=== PATIENT | female | born 1935 | race Caucasian/White ===

== ENCOUNTER 2019-02-25 08:54 | Emergency (ER) | payer MEDICARE, BC ==
[~2019-02-25] VITALS: Ht 162.6 cm; Wt 66.4 kg
[~2019-02-25 08:54] MED LIST: METO25TA6 PO; PANT-47 PO; SIMV20TA5 PO; SYN0.1T PO
[2019-02-25 09:15] VITALS: BP 142/57
[2019-02-25 10:00] LABS: BASOPHILS % (AUTO) 0.6 % (0-1); EOSINOPHILS # (AUTO) 0.1 X10'3 (0-0.9); EOSINOPHILS % (AUTO) 3.5 % (0-6); HEMATOCRIT 31.9 % (35.0-45.0); HEMOGLOBIN 10.4 g/dl (12.0-16.0); LYMPHOCYTES # (AUTO) 0.8 X10'3 (1.1-4.8); LYMPHOCYTES % (AUTO) 22.7 % (21-51); MEAN CORPUSCULAR HEMOGLOBIN 29.9 PG (27.0-31.0); MEAN CORPUSCULAR HGB CONC 32.7 g/dL (33.0-36.5); MEAN CORPUSCULAR VOLUME 91.7 FL (78-98); MEAN PLATELET VOLUME 7.7 FL (7.4-10.4); MONOCYTES # (AUTO) 0.4 X10'3 (0-0.9); MONOCYTES % (AUTO) 9.8 % (2-12); NEUTROPHILS # (AUTO) 2.3 X10'3 (1.8-7.7); NEUTROPHILS % (AUTO) 63.4 % (42-75); PLATELET COUNT 137 X10'3 (140-440); RED BLOOD COUNT 3.48 X10'6 (4.20-5.60); RED CELL DISTRIBUTION WIDTH 15.7 % (11.5-14.5); WHITE BLOOD COUNT 3.7 X10'3 (4.5-11.0)
[2019-02-25 10:18] LABS: ALANINE AMINOTRANSFERASE 37 U/L (12-78); ALBUMIN 3.6 G/DL (3.4-5.0); ALBUMIN/GLOBULIN RATIO 0.9 (1.1-1.5); ALKALINE PHOSPHATASE 49 IU/L (46-116); ANION GAP 9 (8-16); ASPARTATE AMINO TRANSFERASE 28 U/L (10-37); BILIRUBIN,TOTAL 0.7 MG/DL (0.1-1.0); BLOOD UREA NITROGEN 21 MG/DL (7-18); BUN/CREATININE RATIO 17.9 (6.6-38.0); CALCIUM 9.3 MG/DL (8.5-10.1); CHLORIDE 108 MMOL/L (99-107); CREATININE 1.17 MG/DL (0.40-0.90); GLUCOSE 89 MG/DL (70-104); SODIUM 142 MMOL/L (135-145); TOTAL CARBON DIOXIDE 24.9 MMOL/L (24-32); TOTAL PROTEIN 7.5 G/DL (6.4-8.2); eGFR 44 ML/MIN
[2019-02-25 10:25] LABS: MAGNESIUM 1.7 MG/DL (1.5-2.4)
== END 2019-02-25 10:53 | disposition home or self-care (01) ==
LOC: ER 08:54
DX: R55 Syncope and collapse (principal); I48.91 Unspecified atrial fibrillation; I10 Essential (primary) hypertension; E03.9 Hypothyroidism, unspecified; Z86.73 Personal history of transient ischemic attack (TIA), and cerebral infarction without residual deficits; Z98.890 Other specified postprocedural states; Z79.899 Other long term (current) drug therapy
CPT/HCPCS: 36415; 71045; 80053; 83735; 83880; 84484; 85025; 93005; 99284

== ENCOUNTER 2020-06-01 14:13 | Emergency (ER) | payer MEDICARE, BC ==
[~2020-06-01] VITALS: Ht 162.6 cm; Wt 66.4 kg
[~2020-06-01 14:13] MED LIST changes: +SIMV-42 PO; -SIMV20TA5 PO
[2020-06-01 15:03] LABS: BASOPHILS % (AUTO) 0.7 % (0-1); EOSINOPHILS # (AUTO) 0.1 X10'3 (0-0.9); EOSINOPHILS % (AUTO) 1.9 % (0-6); HEMATOCRIT 25.5 % (35.0-45.0); HEMOGLOBIN 8.2 g/dl (12.0-16.0); LYMPHOCYTES # (AUTO) 1.7 X10'3 (1.1-4.8); LYMPHOCYTES % (AUTO) 38.4 % (21-51); MEAN CORPUSCULAR HGB CONC 32.3 g/dL (33.0-36.5); MEAN CORPUSCULAR VOLUME 86.7 FL (78-98); MEAN PLATELET VOLUME 7.7 FL (7.4-10.4); MONOCYTES # (AUTO) 0.5 X10'3 (0-0.9); MONOCYTES % (AUTO) 11.3 % (2-12); NEUTROPHILS # (AUTO) 2.1 X10'3 (1.8-7.7); NEUTROPHILS % (AUTO) 47.7 % (42-75); PLATELET COUNT 179 X10'3 (140-440); RED BLOOD COUNT 2.94 X10'6 (4.20-5.60); RED CELL DISTRIBUTION WIDTH 19.9 % (11.5-14.5); WHITE BLOOD COUNT 4.3 X10'3 (4.5-11.0)
[2020-06-01 15:13] LABS: PARTIAL THROMBOPLASTIN TIME 30 SECONDS (22-32)
[2020-06-01 15:19] LABS: ALANINE AMINOTRANSFERASE 26 U/L (12-78); ALBUMIN 3.6 G/DL (3.4-5.0); ALBUMIN/GLOBULIN RATIO 0.9 (1.1-1.5); ALKALINE PHOSPHATASE 70 IU/L (46-116); ANION GAP 8 (8-16); ASPARTATE AMINO TRANSFERASE 30 U/L (10-37); BILIRUBIN,TOTAL 0.7 MG/DL (0.1-1.0); BLOOD UREA NITROGEN 20 MG/DL (7-18); BUN/CREATININE RATIO 21.3 (6.6-38.0); CALCIUM 9.2 MG/DL (8.5-10.1); CHLORIDE 108 MMOL/L (99-107); CREATININE 0.94 MG/DL (0.40-0.90); GLUCOSE 120 MG/DL (70-104); POTASSIUM 4.2 MMOL/L (3.5-5.1); SODIUM 141 MMOL/L (135-145); TOTAL CARBON DIOXIDE 25.4 MMOL/L (24-32); TOTAL PROTEIN 7.7 G/DL (6.4-8.2); eGFR 57 ML/MIN
[2020-06-01 15:25] LABS: MAGNESIUM 1.9 MG/DL (1.5-2.4)
[2020-06-01 15:55] LABS: ANISOCYTOSIS 2+; PLATELET ESTIMATE NORMAL
[2020-06-01 16:04] LABS: HYPOCHROMASIA 1+
[2020-06-01 16:05] LABS: STOMATOCYTES 1+
[2020-06-01 16:06] LABS: POLYCHROMASIA FEW
[2020-06-01] MEDS ORDERED: diltiazem 5mg/ml 5ml inj. IV ONE (16:35)
--- NOTE | 2020-06-01 16:53 | NUR ---
Pt's HR down to 80-[address] Garcia at bedside to discuss d/c instructions.
[2020-06-01] MEDS ORDERED: FURO-150 PO (16:58)
[2020-06-01 17:26] VITALS: BP 147/82
== END 2020-06-01 17:29 | disposition home or self-care (01) ==
LOC: ER 14:13
DX: I11.0 Hypertensive heart disease with heart failure (principal); I15.0 Renovascular hypertension; D50.0 Iron deficiency anemia secondary to blood loss (chronic); I48.91 Unspecified atrial fibrillation; E03.9 Hypothyroidism, unspecified; Z86.79 Personal history of other diseases of the circulatory system; Z98.890 Other specified postprocedural states; Z90.89 Acquired absence of other organs; Z72.89 Other problems related to lifestyle; Z86.73 Personal history of transient ischemic attack (TIA), and cerebral infarction without residual deficits; Z88.8 Allergy status to other drugs, medicaments and biological substances; Z79.899 Other long term (current) drug therapy; I50.9 Heart failure, unspecified
CPT/HCPCS: 36415; 71045; 80053; 83735; 83880; 84484; 85008; 85025; 85610; 85730; 93005; 96374; 99285; J3490

== ENCOUNTER 2020-09-26 10:47 | Emergency (ER) | payer MEDICARE, BC ==
[~2020-09-26] VITALS: Ht 165.1 cm; Wt 63.6 kg
[~2020-09-26 10:47] MED LIST changes: +ATOR40TA PO; +CARV-50 PO; +FURO-150 PO; +MEMA5TAB PO; -METO25TA6 PO; -PANT-47 PO; +PANT40SU2 PO; -SIMV-42 PO
[2020-09-26 11:57] LABS: BASOPHILS % (AUTO) 0.4 % (0-1); EOSINOPHILS # (AUTO) 0.1 X10'3 (0-0.9); EOSINOPHILS % (AUTO) 2.4 % (0-6); HEMATOCRIT 22.7 % (35.0-45.0); HEMOGLOBIN 7.3 g/dl (12.0-16.0); LYMPHOCYTES # (AUTO) 1.1 X10'3 (1.1-4.8); LYMPHOCYTES % (AUTO) 29.4 % (21-51); MEAN CORPUSCULAR HEMOGLOBIN 28.9 PG (27.0-31.0); MEAN CORPUSCULAR HGB CONC 32.1 g/dL (33.0-36.5); MEAN CORPUSCULAR VOLUME 90.1 FL (78-98); MEAN PLATELET VOLUME 7.8 FL (7.4-10.4); MONOCYTES # (AUTO) 0.4 X10'3 (0-0.9); MONOCYTES % (AUTO) 10.9 % (2-12); NEUTROPHILS # (AUTO) 2.1 X10'3 (1.8-7.7); NEUTROPHILS % (AUTO) 56.9 % (42-75); PLATELET COUNT 141 X10'3 (140-440); RED BLOOD COUNT 2.52 X10'6 (4.20-5.60); RED CELL DISTRIBUTION WIDTH 23.5 % (11.5-14.5); WHITE BLOOD COUNT 3.7 X10'3 (4.5-11.0)
[2020-09-26 12:10] LABS: ALANINE AMINOTRANSFERASE 19 U/L (12-78); ALBUMIN 3.4 G/DL (3.4-5.0); ALBUMIN/GLOBULIN RATIO 0.9 (1.1-1.5); ALKALINE PHOSPHATASE 63 IU/L (46-116); ANION GAP 11 (8-16); ASPARTATE AMINO TRANSFERASE 27 U/L (10-37); BILIRUBIN,TOTAL 0.6 MG/DL (0.1-1.0); BLOOD UREA NITROGEN 32 MG/DL (7-18); CALCIUM 8.8 MG/DL (8.5-10.1); CHLORIDE 106 MMOL/L (99-107); CREATININE 1.23 MG/DL (0.40-0.90); GLUCOSE 99 MG/DL (70-104); POTASSIUM 3.4 MMOL/L (3.5-5.1); SODIUM 142 MMOL/L (135-145); TOTAL CARBON DIOXIDE 25.1 MMOL/L (24-32); TOTAL PROTEIN 7.3 G/DL (6.4-8.2); eGFR 42 ML/MIN
[2020-09-26 13:00] VITALS: BP 150/70
[2020-09-26 13:24] LABS: ANISOCYTOSIS 3+; HYPOCHROMASIA 1+; PLATELET ESTIMATE NORMAL
[2020-09-26 13:25] LABS: SCHISTOCYTES FEW
== END 2020-09-26 13:03 | disposition home or self-care (01) ==
LOC: ER 10:47
DX: D64.9 Anemia, unspecified (principal); E86.0 Dehydration; K92.2 Gastrointestinal hemorrhage, unspecified; I50.9 Heart failure, unspecified; I11.0 Hypertensive heart disease with heart failure; I48.91 Unspecified atrial fibrillation; E03.9 Hypothyroidism, unspecified; Z86.2 Personal history of diseases of the blood and blood-forming organs and certain disorders involving the immune mechanism; Z86.718 Personal history of other venous thrombosis and embolism; Z86.73 Personal history of transient ischemic attack (TIA), and cerebral infarction without residual deficits; Z98.890 Other specified postprocedural states; Z72.89 Other problems related to lifestyle; Z88.8 Allergy status to other drugs, medicaments and biological substances; Z79.899 Other long term (current) drug therapy
CPT/HCPCS: 36415; 71045; 80053; 83880; 84484; 85008; 85025; 85610; 86885; 86900; 86901; 93005; 99285

== ENCOUNTER 2020-10-07 10:34 | Emergency (ER) | payer MEDICARE, BC ==
[~2020-10-07] VITALS: Ht 162.6 cm; Wt 65.9 kg
[2020-10-07 12:14] LABS: BASOPHILS % (AUTO) 0.6 % (0-1); EOSINOPHILS # (AUTO) 0.1 X10'3 (0-0.9); EOSINOPHILS % (AUTO) 3.3 % (0-6); HEMATOCRIT 22.9 % (35.0-45.0); HEMOGLOBIN 7.3 g/dl (12.0-16.0); LYMPHOCYTES % (AUTO) 27.2 % (21-51); MEAN CORPUSCULAR HGB CONC 31.8 g/dL (33.0-36.5); MEAN CORPUSCULAR VOLUME 87.9 FL (78-98); MEAN PLATELET VOLUME 7.6 FL (7.4-10.4); MONOCYTES # (AUTO) 0.4 X10'3 (0-0.9); MONOCYTES % (AUTO) 10.1 % (2-12); NEUTROPHILS # (AUTO) 2.1 X10'3 (1.8-7.7); NEUTROPHILS % (AUTO) 58.8 % (42-75); PLATELET COUNT 146 X10'3 (140-440); RED BLOOD COUNT 2.61 X10'6 (4.20-5.60); RED CELL DISTRIBUTION WIDTH 20.5 % (11.5-14.5); WHITE BLOOD COUNT 3.6 X10'3 (4.5-11.0)
[2020-10-07] MEDS ORDERED: normal saline 1000ML IV soln IVB ONE (12:20)
[2020-10-07 12:32] LABS: ALANINE AMINOTRANSFERASE 19 U/L (12-78); ALBUMIN 3.5 G/DL (3.4-5.0); ALBUMIN/GLOBULIN RATIO 0.8 (1.1-1.5); ALKALINE PHOSPHATASE 68 IU/L (46-116); ANION GAP 11 (8-16); ASPARTATE AMINO TRANSFERASE 32 U/L (10-37); BILIRUBIN,TOTAL 0.9 MG/DL (0.1-1.0); BLOOD UREA NITROGEN 25 MG/DL (7-18); BUN/CREATININE RATIO 20.3 (6.6-38.0); CALCIUM 8.9 MG/DL (8.5-10.1); CHLORIDE 102 MMOL/L (99-107); CREATININE 1.23 MG/DL (0.40-0.90); GLUCOSE 100 MG/DL (70-104); POTASSIUM 3.8 MMOL/L (3.5-5.1); SODIUM 140 MMOL/L (135-145); TOTAL CARBON DIOXIDE 27.4 MMOL/L (24-32); TOTAL PROTEIN 7.7 G/DL (6.4-8.2); eGFR 42 ML/MIN
[2020-10-07 12:44] LABS: TROPONIN I < 0.04 NG/ML (0.0-0.05)
--- NOTE | 2020-10-07 12:58 | NUR ---
DR JAMA AT BEDSIDE TO EVALUATE PT
[2020-10-07 13:21] LABS: ANISOCYTOSIS 3+; HYPOCHROMASIA 1+; PLATELET ESTIMATE NORMAL; POLYCHROMASIA 1+; STOMATOCYTES 1+
[2020-10-07 14:18] VITALS: BP 164/90
[2020-10-07 14:41] VITALS: BP 159/76
[2020-10-07 15:00] VITALS: BP 147/75
[2020-10-07 15:15] VITALS: BP 153/89
[2020-10-07 15:45] VITALS: BP 179/95
[2020-10-07 16:34] VITALS: BP 162/89
== END 2020-10-07 16:36 | disposition home or self-care (01) ==
LOC: ER 10:35
DX: D64.9 Anemia, unspecified (principal); I48.91 Unspecified atrial fibrillation; I10 Essential (primary) hypertension; E03.9 Hypothyroidism, unspecified; Z86.73 Personal history of transient ischemic attack (TIA), and cerebral infarction without residual deficits; Z72.89 Other problems related to lifestyle; Z88.8 Allergy status to other drugs, medicaments and biological substances; Z79.899 Other long term (current) drug therapy
CPT/HCPCS: 36415; 36430; 71045; 80053; 84484; 85008; 85025; 86885; 86900; 86901; 86920; 93005; 99285; J7030; P9016

== ENCOUNTER 2020-10-10 13:43 | Inpatient (IN) | payer MEDICARE, BC ==
[2020-10-10] VITALS (11 sets, daily range): BP systolic 115–156; BP diastolic 49–87
[~2020-10-10] VITALS: Ht 165.1 cm; Wt 64.8 kg
[2020-10-10] MEDS ORDERED: ondansetron/PF 4mg/2ml inj IV ONE (14:00)
[2020-10-10] MEDS ORDERED: morphine 4 MG/ML inj SYRINge IV PRN ×2 (14:00→15:45)
[2020-10-10 14:13] LABS: BASOPHILS % (AUTO) 0.5 % (0-1); EOSINOPHILS # (AUTO) 0.1 X10'3 (0-0.9); EOSINOPHILS % (AUTO) 3.2 % (0-6); HEMATOCRIT 28.3 % (35.0-45.0); HEMOGLOBIN 9.1 g/dl (12.0-16.0); LYMPHOCYTES # (AUTO) 1.2 X10'3 (1.1-4.8); LYMPHOCYTES % (AUTO) 27.6 % (21-51); MEAN CORPUSCULAR HEMOGLOBIN 27.9 PG (27.0-31.0); MEAN CORPUSCULAR HGB CONC 32.3 g/dL (33.0-36.5); MEAN CORPUSCULAR VOLUME 86.6 FL (78-98); MEAN PLATELET VOLUME 7.4 FL (7.4-10.4); MONOCYTES # (AUTO) 0.6 X10'3 (0-0.9); MONOCYTES % (AUTO) 13.6 % (2-12); NEUTROPHILS # (AUTO) 2.3 X10'3 (1.8-7.7); NEUTROPHILS % (AUTO) 55.1 % (42-75); PLATELET COUNT 161 X10'3 (140-440); RED BLOOD COUNT 3.27 X10'6 (4.20-5.60); RED CELL DISTRIBUTION WIDTH 21.2 % (11.5-14.5); WHITE BLOOD COUNT 4.2 X10'3 (4.5-11.0)
[2020-10-10] MEDS ORDERED: ASCO-10 PO (14:16)
[2020-10-10] MEDS ORDERED: VITA-268 PO (14:16)
[2020-10-10] MEDS ORDERED: TURM500C4 PO (14:16)
[2020-10-10] MEDS ORDERED: PANT40GR PO (14:16)
[2020-10-10] MEDS ORDERED: CHOL10006 PO (14:16)
[2020-10-10] MEDS ORDERED: OMEG1CAP13 PO (14:16)
[2020-10-10 14:24] LABS: PARTIAL THROMBOPLASTIN TIME 25 SECONDS (22-32)
[2020-10-10 14:26] LABS: ALANINE AMINOTRANSFERASE 21 U/L (12-78); ALBUMIN 3.5 G/DL (3.4-5.0); ALBUMIN/GLOBULIN RATIO 0.8 (1.1-1.5); ALKALINE PHOSPHATASE 66 IU/L (46-116); ANION GAP 8 (8-16); ASPARTATE AMINO TRANSFERASE 29 U/L (10-37); BILIRUBIN,TOTAL 1.2 MG/DL (0.1-1.0); BLOOD UREA NITROGEN 24 MG/DL (7-18); BUN/CREATININE RATIO 20.3 (6.6-38.0); CALCIUM 8.9 MG/DL (8.5-10.1); CHLORIDE 106 MMOL/L (99-107); CREATININE 1.18 MG/DL (0.40-0.90); GLUCOSE 137 MG/DL (70-104); POTASSIUM 3.7 MMOL/L (3.5-5.1); SODIUM 143 MMOL/L (135-145); TOTAL CARBON DIOXIDE 28.8 MMOL/L (24-32); TOTAL PROTEIN 7.8 G/DL (6.4-8.2); eGFR 44 ML/MIN
[2020-10-10] MEDS ORDERED: iohexol 350MG/ML 100ml bottle IV ONE (14:37)
[2020-10-10 14:46] LABS: ANISOCYTOSIS 3+; PLATELET ESTIMATE NORMAL
[2020-10-10 14:47] LABS: HYPOCHROMASIA 1+
[2020-10-10] MEDS ORDERED: heparin 10,000 units/1 ML INJ ONE (15:01)
[2020-10-10] MEDS ORDERED: heparin 10,000 units/1 ML INJ IV ONE (15:05)
[2020-10-10] MEDS ORDERED: heparin 25,000 UNIT/250ml bag 250 ML IV SCH ×2 (15:05→15:25)
[2020-10-10] MEDS ORDERED: heparin 10,000 units/1 ML INJ IV PRN ×2 (15:10→15:25)
[2020-10-10] MEDS ORDERED: BUPIVAcaine/PF 2.5mg/ml (0.25%) 10ml vial ONE (15:17)
[2020-10-10] MEDS ORDERED: pantoprazole 40 MG vial IV ONE (15:25)
[2020-10-10] MEDS ORDERED: mag hydrox/Alum hydrox/simeth 30ml oral suspension PO PRN (15:25)
[2020-10-10] MEDS ORDERED: potassium Cl 40MEQ/1/2NS 520ml 520 ML IV PRN ×2 (15:25)
[2020-10-10] MEDS ORDERED: HYDROcodone/acetaminophen 10/325mg tab PO PRN (15:25)
[2020-10-10] MEDS ORDERED: metoclopramide 5 mg/ml inj IV PRN (15:25)
[2020-10-10] MEDS ORDERED: magnesium 2GM in 50ml NS 50 ML IV PRN (15:25)
[2020-10-10] MEDS ORDERED: potassium Cl 20 mEq SR tablet PO PRN ×2 (15:25)
[2020-10-10] MEDS ORDERED: magnesium hydroxide 30ml (MOM) UD suspension PO PRN (15:25)
[2020-10-10] MEDS ORDERED: magnesium 4gm in 100ml NS 100 ML IV PRN (15:25)
[2020-10-10] MEDS ORDERED: HYDROmorphone inj. 0.5 MG/0.5 ML DISP.SYRIN IV PRN (15:25)
[2020-10-10] MEDS ORDERED: ondansetron/PF 4mg/2ml inj IV PRN ×2 (15:25→15:45)
[2020-10-10] MEDS ORDERED: acetaminophen 325mg tablet PO PRN ×2 (15:25)
[2020-10-10] MEDS ORDERED: HYDROcodone/acetaminophen 5mg/325mg tablet PO PRN (15:25)
[2020-10-10] MEDS ORDERED: bisacodyl 10mg suppository rectal RC PRN (15:25)
[2020-10-10] MEDS ORDERED: magnesium Cl slow-release 64mg tablet PO PRN (15:25)
--- NOTE | 2020-10-10 15:38 | NUR ---
PATIENT TO SURGERY PER TOBY, ACCOMPANIED BY DAUGHTER. HEPARIN DRIP IN PROGRESS AT 1100 UNITS/HR.
[2020-10-10] MEDS ORDERED: ringers solution, lacted 1,000 ML IV SCH (15:45)
[2020-10-10] MEDS ORDERED: morphine 2 MG/ML inj. syringe IV PRN (15:45)
[2020-10-10] MEDS ORDERED: acetaminophen 1,000mg/100ml IV 100 ML IV PRN (15:45)
[2020-10-10] MEDS ORDERED: meperidine/PF 25mg/ml syringe IV PRN ×3 (15:45)
[2020-10-10] MEDS ORDERED: hydrALAZINE 20mg/ml inj. IV PRN (15:45)
[2020-10-10] MEDS ORDERED: labetalol 20mg/4ml (5mg/ml) syringe IV PRN (15:45)
[2020-10-10] MEDS ORDERED: proCHLORperazine 10 MG/2 ml inj IV PRN (15:45)
[2020-10-10 15:48] LABS: PHOSPHORUS 4.1 MG/DL (2.3-4.5)
--- NOTE | 2020-10-10 15:48 | NUR ---
TC REPORT TO RECOVERY ROOM, FULL PATIENT UPDATE TO DREW GONZALEZ.
[2020-10-10] MEDS ORDERED: metoclopramide 5 mg/ml inj ONE ×2 (15:51→17:16)
[2020-10-10] MEDS ORDERED: glycopyrrolate 0.2mg/ml inj ONE (15:51)
[2020-10-10] MEDS ORDERED: neostigmine methylsulfate 1 MG/ML 10ml vial ONE (15:51)
[2020-10-10] MEDS ORDERED: albumin (Human) 5% 250ml BOTTLE IV ONE (15:51)
[2020-10-10] MEDS ORDERED: sevoflurane 250ml liquid IH ONE (15:51)
[2020-10-10] MEDS ORDERED: midazolam 1 mg/ML 2ml injection ONE (16:04)
[2020-10-10] MEDS ORDERED: fentaNYL/PF 50MCG/1 ML 2ML syringe ONE (16:04)
[2020-10-10] MEDS ORDERED: famotidine/PF 10 mg/ml inj IV ONE (16:10)
[2020-10-10] MEDS ORDERED: ceFAZolin 1000mg inj ONE ×2 (17:15)
[2020-10-10] MEDS ORDERED: propofol inj 20 ML IV ONE (17:15)
[2020-10-10] MEDS ORDERED: ondansetron/PF 4mg/2ml inj ONE (17:16)
[2020-10-10] MEDS ORDERED: ePHEDrine 50MG/ML INJ. ONE (17:16)
[2020-10-10] MEDS ORDERED: rocuronium 10mg/ml inj IV ONE (17:16)
[2020-10-10] MEDS ORDERED: dexamethasone sod phosphate 4mg/ml inj. ONE (17:16)
[2020-10-10] MEDS ORDERED: LIDOcaine 2% (20mg/ml) 5ml vial ONE (17:16)
[2020-10-10] MEDS ORDERED: bacitracin 15gm ointment TP ONE (17:35)
--- NOTE | 2020-10-10 18:00 | NUR ---
ADMITTED TO PACU FROM OR ACCOMPANIED BY ANESTHESIA. INTIAL PHYSICAL ASSESSMENT DONE AND RECORDED. REPORT RECEIVED FROM ANESTHESIA.
--- NOTE | 2020-10-10 19:00 | NUR ---
PACU DISCHARGE CRITERIA MET, REPORT GIVEN TO FLOOR. DENIES PAIN OR DISCOMFORT, TRANSFERRED TO ROOM IN STABLE GOOD CONDITION. DEMONSTRATED DRESSING CHANGE TO ACCE RN. SURGICAL SITE OOZING, INSTRUCTED RN NOT TO PUT CONSTRICTING DRESSING ON AREA PER DR DIAZ.
--- NOTE | 2020-10-10 19:00 | NUR ---
Patient in room MED 310. I have received report from Suzette(OR), and had the opportunity to ask questions and assume patient care.
--- NOTE | 2020-10-10 19:12 | NUR ---
PAGER ID: [phone] MESSAGE: Sheri Waggoner 84F, [id number], s/p right artery thrombectomy with vein patch, Alert, oriented x4. No diet for tonight. She has no hx of DM. [id number]
[2020-10-10] MEDS: K and/or MAG REPLACEMENT MC SCH (20:00)
[2020-10-10] MEDS ORDERED: temazepam 15mg capsule PO PRN (21:00)
[2020-10-10] MEDS: carVEDilol 12.5mg tablet PO SCH (21:02)
[2020-10-10] MEDS: memantine 5mg tablet PO SCH (21:03)
[2020-10-10] MEDS: atorvastatin 20mg tablet PO SCH ×2 (21:03→21:10)
--- NOTE | 2020-10-10 21:15 | NUR ---
Called Dr. Melchor regarding the patient developing hematoma at right brachial site. He ordered to stop the heparin drip. Use 4x4 and URVASHI wrap as long as the peripheral pulse is present. No other orders were given at this time.
[2020-10-10] MEDS: normal saline 1000ml 1,000 ML IV SCH (21:19)
[2020-10-11] VITALS: BP 123/58
[2020-10-11] MEDS: normal saline 1000ml 1,000 ML IV SCH ×2 (01:25→11:25)
[2020-10-11 02:00] VITALS: BP 99/48
--- NOTE | 2020-10-11 02:33 | NUR ---
Patient is Alert, oriented. Not at any distress. Right radial and ulnar pulses palpable.
--- NOTE | 2020-10-11 04:27 | NUR ---
The right antecubital bleeding has stop, but there is 2-3 inches hematoma present. The radial and ulnar pulses are present palpable. Patient denies any pain or discomfort.
[2020-10-11 06:30] VITALS: BP 117/60
--- NOTE | 2020-10-11 06:33 | NUR ---
Problems reprioritized. Patient report given, questions answered & plan of care reviewed with Pat.
[2020-10-11 07:10] LABS: BASOPHILS % (AUTO) 0.2 % (0-1); EOSINOPHILS % (AUTO) 0 % (0-6); HEMATOCRIT 25.2 % (35.0-45.0); LYMPHOCYTES # (AUTO) 0.7 X10'3 (1.1-4.8); MEAN CORPUSCULAR HEMOGLOBIN 28.4 PG (27.0-31.0); MEAN CORPUSCULAR HGB CONC 31.9 g/dL (33.0-36.5); MEAN CORPUSCULAR VOLUME 89.1 FL (78-98); MEAN PLATELET VOLUME 7.7 FL (7.4-10.4); MONOCYTES # (AUTO) 0.2 X10'3 (0-0.9); MONOCYTES % (AUTO) 7.8 % (2-12); NEUTROPHILS # (AUTO) 2.1 X10'3 (1.8-7.7); PLATELET COUNT 127 X10'3 (140-440); RED BLOOD COUNT 2.83 X10'6 (4.20-5.60); WHITE BLOOD COUNT 3.1 X10'3 (4.5-11.0)
[2020-10-11 07:37] LABS: ALANINE AMINOTRANSFERASE 12 U/L (12-78); ALBUMIN 2.9 G/DL (3.4-5.0); ALBUMIN/GLOBULIN RATIO 0.8 (1.1-1.5); ALKALINE PHOSPHATASE 53 IU/L (46-116); ANION GAP 10 (8-16); ASPARTATE AMINO TRANSFERASE 22 U/L (10-37); BILIRUBIN,TOTAL 0.6 MG/DL (0.1-1.0); BLOOD UREA NITROGEN 23 MG/DL (7-18); BUN/CREATININE RATIO 22.5 (6.6-38.0); CALCIUM 8.6 MG/DL (8.5-10.1); CHLORIDE 111 MMOL/L (99-107); CHOL/HDL RATIO 1.8 (0.00-4.99); CHOLESTEROL 80 MG/DL (0-200); CREATININE 1.02 MG/DL (0.40-0.90); GLUCOSE 125 MG/DL (70-104); HDL CHOLESTEROL 44 MG/DL (35-60); LDL CHOLESTEROL 34 MG/DL (50-100); MAGNESIUM 2.1 MG/DL (1.5-2.4); POTASSIUM 4.1 MMOL/L (3.5-5.1); SODIUM 145 MMOL/L (135-145); TOTAL CARBON DIOXIDE 24.1 MMOL/L (24-32); TOTAL PROTEIN 6.6 G/DL (6.4-8.2); TRIGLYCERIDES 39 MG/DL (20-135); eGFR 52 ML/MIN
[2020-10-11] MEDS ORDERED: pantoprazole 40 MG vial IV SCH (08:00)
[2020-10-11] MEDS: K and/or MAG REPLACEMENT MC SCH (08:00)
[2020-10-11] MEDS ORDERED: levoTHYROXINE 100mcg tablet PO SCH (08:00)
[2020-10-11] MEDS: carVEDilol 12.5mg tablet PO SCH (08:28)
[2020-10-11] MEDS ORDERED: pantoprazole 40mg Tablet.DR PO SCH (08:43)
[2020-10-11 08:53] LABS: ANISOCYTOSIS 3+; HYPOCHROMASIA 1+; PLATELET ESTIMATE DECREASED
[2020-10-11 08:54] LABS: POLYCHROMASIA 1+
[2020-10-11] MEDS: memantine 5mg tablet PO SCH (09:49)
[2020-10-11 11:00] VITALS: BP 134/68
--- NOTE | 2020-10-11 13:05 | NUR ---
Paged Dr. Melgar regarding that Dr. Nuñez said that the patient was okay to discharge. PAGER ID: [phone] MESSAGE: [phone]. KENDY MCQUEEN. PER DR. BENJIE MUSTAFA TO DISCHARGE. THANK YOU. ADAL GONZALEZ X [phone]
== END 2020-10-11 15:55 | disposition home or self-care (01) | DRG 253 ==
LOC: ER 13:43 → ED HOLD 15:23 → MED 3N 20:12
PROVIDERS: ADMIT Family Medicine; ATTEND Family Medicine
PROC: 03C90ZZ Extirpation of Matter from Right Ulnar Artery, Open Approach (ICD-10-PCS; 2020-10-10)
PROC: 03C70ZZ Extirpation of Matter from Right Brachial Artery, Open Approach (ICD-10-PCS; principal; 2020-10-10 15:51)
DX: I74.2 Embolism and thrombosis of arteries of the upper extremities (principal); I50.22 Chronic systolic (congestive) heart failure; I13.0 Hypertensive heart and chronic kidney disease with heart failure and stage 1 through stage 4 chronic kidney disease, or unspecified chronic kidney disease; I73.9 Peripheral vascular disease, unspecified; D64.9 Anemia, unspecified; E03.9 Hypothyroidism, unspecified; E78.5 Hyperlipidemia, unspecified; G31.84 Mild cognitive impairment of uncertain or unknown etiology; I48.91 Unspecified atrial fibrillation; N18.9 Chronic kidney disease, unspecified; Z86.73 Personal history of transient ischemic attack (TIA), and cerebral infarction without residual deficits; Z88.8 Allergy status to other drugs, medicaments and biological substances; Z87.891 Personal history of nicotine dependence
CPT/HCPCS: 36415; 71045; 80053; 80061; 83735; 83880; 84100; 84443; 84484; 85008; 85025; 85610; 85730; 86885; 86900; 86901; 86920; 87081; 93005; 93931; 99291; A4618; A7000; C9113; G0378; J0690; J1100; J1644; J2001; J2250; J2270; J2405; J2704; J2710; J2765; J3010; J3490; J7030; J7040; P9045; Q9967

== ENCOUNTER 2020-10-16 09:56 | Emergency (ER) | payer MEDICARE, BC ==
[~2020-10-16] VITALS: Ht 165.1 cm; Wt 63.6 kg
[~2020-10-16 09:56] MED LIST changes: +ASCO-10 PO; +CHOL10006 PO; +OMEG1CAP13 PO; +PANT40GR PO; -PANT40SU2 PO; +TURM500C4 PO; +VITA-268 PO
[2020-10-16 11:23] VITALS: BP 137/72
== END 2020-10-16 11:27 | disposition home or self-care (01) ==
LOC: ER 09:57
DX: Z48.01 Encounter for change or removal of surgical wound dressing (principal); R20.0 Anesthesia of skin; I48.91 Unspecified atrial fibrillation; I11.0 Hypertensive heart disease with heart failure; I50.9 Heart failure, unspecified; E03.9 Hypothyroidism, unspecified; Z86.2 Personal history of diseases of the blood and blood-forming organs and certain disorders involving the immune mechanism; Z86.73 Personal history of transient ischemic attack (TIA), and cerebral infarction without residual deficits; Z87.891 Personal history of nicotine dependence; Z72.89 Other problems related to lifestyle; Z98.890 Other specified postprocedural states; Z88.8 Allergy status to other drugs, medicaments and biological substances; Z79.899 Other long term (current) drug therapy
CPT/HCPCS: 99281

== ENCOUNTER 2021-03-08 11:08 | Inpatient (IN) | payer MEDICARE, BC ==
[~2021-03-08] VITALS: Ht 162.6 cm; Wt 61.0 kg
[2021-03-08 12:07] LABS: BASOPHILS % (AUTO) 0.2 % (0-1); EOSINOPHILS # (AUTO) 0.1 X10'3 (0-0.9); EOSINOPHILS % (AUTO) 1.5 % (0-6); HEMOGLOBIN 7.3 g/dl (12.0-16.0); LYMPHOCYTES % (AUTO) 21.8 % (21-51); MEAN CORPUSCULAR HEMOGLOBIN 33.5 PG (27.0-31.0); MEAN CORPUSCULAR HGB CONC 33.7 g/dL (33.0-36.5); MEAN CORPUSCULAR VOLUME 99.2 FL (78-98); MEAN PLATELET VOLUME 8.1 FL (7.4-10.4); MONOCYTES # (AUTO) 0.4 X10'3 (0-0.9); MONOCYTES % (AUTO) 9.1 % (2-12); NEUTROPHILS # (AUTO) 3.1 X10'3 (1.8-7.7); NEUTROPHILS % (AUTO) 67.4 % (42-75); PLATELET COUNT 105 X10'3 (140-440); RED BLOOD COUNT 2.18 X10'6 (4.20-5.60); RED CELL DISTRIBUTION WIDTH 15.4 % (11.5-14.5); WHITE BLOOD COUNT 4.6 X10'3 (4.5-11.0)
[2021-03-08 12:10] LABS: HEMATOCRIT 21.6 % (35.0-45.0)
[2021-03-08 12:17] LABS: ALANINE AMINOTRANSFERASE 13 U/L (12-78); ALBUMIN 3.1 G/DL (3.4-5.0); ALBUMIN/GLOBULIN RATIO 0.9 (1.1-1.5); ALKALINE PHOSPHATASE 61 IU/L (46-116); ANION GAP 8 (8-16); ASPARTATE AMINO TRANSFERASE 23 U/L (10-37); BILIRUBIN,TOTAL 0.6 MG/DL (0.1-1.0); BLOOD UREA NITROGEN 66 MG/DL (7-18); BUN/CREATININE RATIO 45.5 (6.6-38.0); CALCIUM 8.9 MG/DL (8.5-10.1); CHLORIDE 106 MMOL/L (99-107); CREATININE 1.45 MG/DL (0.40-0.90); GLUCOSE 96 MG/DL (70-104); POTASSIUM 3.9 MMOL/L (3.5-5.1); SODIUM 143 MMOL/L (135-145); TOTAL CARBON DIOXIDE 28.7 MMOL/L (24-32); TOTAL PROTEIN 6.5 G/DL (6.4-8.2); eGFR 34 ML/MIN
[2021-03-08] MEDS ORDERED: pantoprazole 40 MG vial IV ONE (12:30)
[2021-03-08] MEDS ORDERED: pantoprazole 40MG/NS 100ML BAG 100 ML IV ONE (12:30)
[2021-03-08] MEDS ORDERED: APIX5TAB3 PO (12:46)
[2021-03-08] MEDS ORDERED: CLOP75TA34 PO (12:46)
[2021-03-08 12:49] LABS: PARTIAL THROMBOPLASTIN TIME 26 SECONDS (22-32)
[2021-03-08] MEDS ORDERED: potassium Cl 40MEQ/1/2NS 520ml 520 ML IV PRN ×2 (12:50)
[2021-03-08] MEDS ORDERED: bisacodyl 10mg suppository rectal RC PRN (12:50)
[2021-03-08] MEDS ORDERED: magnesium 2GM in 50ml NS 50 ML IV PRN (12:50)
[2021-03-08] MEDS ORDERED: potassium Cl 20 mEq SR tablet PO PRN ×2 (12:50)
[2021-03-08] MEDS ORDERED: acetaminophen 325mg tablet PO PRN (12:50)
[2021-03-08] MEDS ORDERED: magnesium 4gm in 100ml NS 100 ML IV PRN (12:50)
[2021-03-08] MEDS ORDERED: ondansetron/PF 4mg/2ml inj IV PRN (12:50)
[2021-03-08 13:30] LABS: OCCULT BLOOD STOOL POSITIVE (Neg)
[2021-03-08 14:48] LABS: CLARITY,URINE CLEAR (Clear); COLOR,URINE YELLOW (Yellow); UA COLLECTION TYPE CLN CATCH MIDSTREAM
[2021-03-08 14:49] LABS: PROTEIN,URINE NEGATIVE (Neg)
[2021-03-08 14:50] LABS: GLUCOSE, URINE NEGATIVE (Neg); KETONES,URINE NEGATIVE (Neg); OCCULT BLOOD,URINE NEGATIVE (Neg)
[2021-03-08 14:51] LABS: LEUKOCYTE ESTERASE ,URINE NEGATIVE (Neg); NITRITES, URINE NEGATIVE (Neg); UROBILINOGEN,URINE 0.2 E.U/dL (0.2-1.0)
--- NOTE | 2021-03-08 15:03 | NUR ---
Pt's daughter, Jacklyn (power of admitted attorneys) called and wanted an update and to speak with the doctor. Her phone number is [phone].
[2021-03-08] MEDS: pantoprazole 40MG/NS 100ML BAG 100 ML IV SCH ×2 (16:19→21:08)
[2021-03-08 16:20] LABS: HEMOGLOBIN 7.4 g/dl (12.0-16.0); MEAN CORPUSCULAR HEMOGLOBIN 32.9 PG (27.0-31.0); MEAN CORPUSCULAR HGB CONC 33.6 g/dL (33.0-36.5); MEAN CORPUSCULAR VOLUME 97.9 FL (78-98); MEAN PLATELET VOLUME 7.9 FL (7.4-10.4); PLATELET COUNT 106 X10'3 (140-440); RED BLOOD COUNT 2.24 X10'6 (4.20-5.60); RED CELL DISTRIBUTION WIDTH 15.5 % (11.5-14.5); WHITE BLOOD COUNT 4.3 X10'3 (4.5-11.0)
[2021-03-08 16:25] LABS: HEMATOCRIT 21.9 % (35.0-45.0)
[2021-03-08 16:47] LABS: % IRON SATURATION 33 % (11-46); IRON 87 UG/DL (49-151); TOTAL IRON BINDING CAPACITY 262 UG/DL (259-388)
[2021-03-08] MEDS: carVEDilol 12.5mg tablet PO SCH (19:53)
[2021-03-08] MEDS: memantine 5mg tablet PO SCH (19:53)
[2021-03-08] MEDS: docusate sod 100mg capsule PO SCH (19:53)
[2021-03-08] MEDS: atorvastatin 20mg tablet PO SCH (19:54)
[2021-03-08] MEDS: K and/or MAG REPLACEMENT MC SCH (19:58)
[2021-03-08 23:07] LABS: MEAN CORPUSCULAR HEMOGLOBIN 33.3 PG (27.0-31.0); MEAN CORPUSCULAR HGB CONC 33.7 g/dL (33.0-36.5); MEAN CORPUSCULAR VOLUME 98.8 FL (78-98); MEAN PLATELET VOLUME 8.1 FL (7.4-10.4); PLATELET COUNT 89 X10'3 (140-440); RED BLOOD COUNT 2.04 X10'6 (4.20-5.60); RED CELL DISTRIBUTION WIDTH 15.6 % (11.5-14.5); WHITE BLOOD COUNT 3.4 X10'3 (4.5-11.0)
--- NOTE | 2021-03-08 23:10 | NUR ---
PT IN NAD UP REASSESSMENT WITH NO CHANGE IN CONDITION; PT HAS NO C/O AND IS RESTING WELL; CALL LIGHT IS ACCESSIBLE AND PT CONTINUES TO BE ON TELE MONITORING WELL; WILL CTM AND REASSESS FREQUENTLY.
[2021-03-08 23:29] LABS: HEMATOCRIT 20.2 % (35.0-45.0); HEMOGLOBIN 6.8 g/dl (12.0-16.0)
[2021-03-09] VITALS (17 sets, daily range): BP systolic 81–140; BP diastolic 39–76
--- NOTE | 2021-03-09 01:17 | NUR ---
Patient placed on hospital bed and is sleeping well now. No change in patient condition. Will continue to monitor. IV assessment. no phlebitis - flushes well. Call light given. VSS
[2021-03-09] MEDS: pantoprazole 40MG/NS 100ML BAG 100 ML IV SCH ×5 (02:34→19:08)
[2021-03-09 04:29] LABS: MEAN CORPUSCULAR HEMOGLOBIN 33.6 PG (27.0-31.0); MEAN CORPUSCULAR HGB CONC 33.9 g/dL (33.0-36.5); MEAN CORPUSCULAR VOLUME 99.2 FL (78-98); PLATELET COUNT 103 X10'3 (140-440); RED BLOOD COUNT 1.98 X10'6 (4.20-5.60); RED CELL DISTRIBUTION WIDTH 15.3 % (11.5-14.5); WHITE BLOOD COUNT 4.1 X10'3 (4.5-11.0)
[2021-03-09 04:37] LABS: HEMOGLOBIN 6.6 g/dl (12.0-16.0)
[2021-03-09 04:38] LABS: HEMATOCRIT 19.6 % (35.0-45.0)
--- NOTE | 2021-03-09 04:40 | NUR ---
Pt H/H result was critical and Dr Sun was paged. Dr Sun came to visit patient in ER and gave verbal order for tranfusion of 1 unit of blood. Orders placed. Patient continues to rest well. Pt VS are stable.
[2021-03-09 05:27] LABS: ALANINE AMINOTRANSFERASE 14 U/L (12-78); ALBUMIN 2.8 G/DL (3.4-5.0); ALBUMIN/GLOBULIN RATIO 0.9 (1.1-1.5); ALKALINE PHOSPHATASE 50 IU/L (46-116); ANION GAP 7 (8-16); ASPARTATE AMINO TRANSFERASE 19 U/L (10-37); BILIRUBIN,TOTAL 0.5 MG/DL (0.1-1.0); BLOOD UREA NITROGEN 62 MG/DL (7-18); BUN/CREATININE RATIO 44.3 (6.6-38.0); CALCIUM 8.8 MG/DL (8.5-10.1); CHLORIDE 108 MMOL/L (99-107); GLUCOSE 92 MG/DL (70-104); MAGNESIUM 2.2 MG/DL (1.5-2.4); POTASSIUM 3.9 MMOL/L (3.5-5.1); SODIUM 144 MMOL/L (135-145); TOTAL CARBON DIOXIDE 29.5 MMOL/L (24-32); eGFR 36 ML/MIN
[2021-03-09] MEDS: levoTHYROXINE 100mcg tablet PO SCH (07:58)
[2021-03-09] MEDS: carVEDilol 12.5mg tablet PO SCH ×2 (08:00→19:17)
[2021-03-09] MEDS: memantine 5mg tablet PO SCH ×2 (08:00→19:10)
[2021-03-09] MEDS: docusate sod 100mg capsule PO SCH ×2 (08:00→19:10)
[2021-03-09] MEDS: K and/or MAG REPLACEMENT MC SCH ×2 (08:00→20:00)
[2021-03-09] MEDS: cholecalciferol (vitamin D3) 1,000 unit (25mcg) tablet PO SCH (08:00)
[2021-03-09] MEDS: furosemide 20MG tablet PO SCH (08:00)
[2021-03-09] MEDS: ascorbic acid 500mg tablet PO SCH (08:00)
[2021-03-09] MEDS: vitamin B comp w/Vit. C tab 1 TAB TABLET PO SCH (08:00)
--- NOTE | 2021-03-09 08:42 | NUR ---
Patient in room ED 14. I have received report from Cher GONZALEZ and had the opportunity to ask questions and assume patient care.
[2021-03-09 10:42] LABS: MEAN CORPUSCULAR HEMOGLOBIN 33.5 PG (27.0-31.0); MEAN CORPUSCULAR HGB CONC 33.2 g/dL (33.0-36.5); MEAN CORPUSCULAR VOLUME 100.7 FL (78-98); MEAN PLATELET VOLUME 7.9 FL (7.4-10.4); PLATELET COUNT 111 X10'3 (140-440); RED BLOOD COUNT 2.07 X10'6 (4.20-5.60); RED CELL DISTRIBUTION WIDTH 15.7 % (11.5-14.5); WHITE BLOOD COUNT 6.6 X10'3 (4.5-11.0)
[2021-03-09 10:45] LABS: HEMATOCRIT 20.8 % (35.0-45.0); HEMOGLOBIN 6.9 g/dl (12.0-16.0)
--- NOTE | 2021-03-09 13:00 | NUR ---
Patient left unit with GI staff for procedure
[2021-03-09] MEDS ORDERED: MIDAZolam 1 MG/ML 5ML VIAL ONE (13:05)
[2021-03-09] MEDS ORDERED: fentaNYL/PF 50MCG/1 ML 2ML syringe ONE (13:05)
[2021-03-09] MEDS ORDERED: LIDOcaine Viscous 15ml cup ONE (13:06)
--- NOTE | 2021-03-09 14:57 | NUR ---
patient back from GI lab, EGD showed no active bleed. GI staff will document to the blood transfusion they completed.
--- NOTE | 2021-03-09 14:58 | NUR ---
paged Dr. Pulido PAGER ID: [phone] MESSAGE: [facility] [id number] Sheri Waggoner back from EGD, No active bleed. They state diet as tolerated. Please place diet order in. Thank you. Please advise Rosa GONZALEZ [phone]
[2021-03-09 16:29] LABS: HEMATOCRIT 24.4 % (35.0-45.0); HEMOGLOBIN 8.4 g/dl (12.0-16.0); MEAN CORPUSCULAR HEMOGLOBIN 33.1 PG (27.0-31.0); MEAN CORPUSCULAR HGB CONC 34.2 g/dL (33.0-36.5); MEAN CORPUSCULAR VOLUME 96.8 FL (78-98); MEAN PLATELET VOLUME 7.7 FL (7.4-10.4); PLATELET COUNT 103 X10'3 (140-440); RED BLOOD COUNT 2.52 X10'6 (4.20-5.60); RED CELL DISTRIBUTION WIDTH 17.1 % (11.5-14.5); WHITE BLOOD COUNT 5.4 X10'3 (4.5-11.0)
--- NOTE | 2021-03-09 16:57 | NUR ---
paged Tess PAGER ID: [phone] MESSAGE: [facility] [id number] Sheri Waggoner, Her caregiver Jacklyn Potter [phone] would like you to give her a call. Also H&H is now 8.4, 24.4. Rosa GONZALEZ [phone]
--- NOTE | 2021-03-09 18:20 | NUR ---
Patient in room PCU 3016. I have received report from LISA Lee and had the opportunity to ask questions and assume patient care.
--- NOTE | 2021-03-09 18:20 | NUR ---
Problems reprioritized. Patient report given, questions answered & plan of care reviewed with Iza GONZALEZ..
[2021-03-09] MEDS: atorvastatin 20mg tablet PO SCH (22:51)
[2021-03-09 22:53] LABS: HEMOGLOBIN 7.4 g/dl (12.0-16.0); MEAN CORPUSCULAR HEMOGLOBIN 33.1 PG (27.0-31.0); MEAN CORPUSCULAR HGB CONC 34.1 g/dL (33.0-36.5); MEAN CORPUSCULAR VOLUME 97.2 FL (78-98); MEAN PLATELET VOLUME 8.2 FL (7.4-10.4); PLATELET COUNT 107 X10'3 (140-440); RED BLOOD COUNT 2.23 X10'6 (4.20-5.60); RED CELL DISTRIBUTION WIDTH 17.2 % (11.5-14.5); WHITE BLOOD COUNT 4.4 X10'3 (4.5-11.0)
[2021-03-09 23:00] LABS: HEMATOCRIT 21.6 % (35.0-45.0)
--- NOTE | 2021-03-09 23:10 | NUR ---
H/H 7.4/21.6, ordered 1 PRBC to transfuse.
[2021-03-10] VITALS (9 sets, daily range): BP systolic 92–158; BP diastolic 45–91
[2021-03-10] MEDS: pantoprazole 40MG/NS 100ML BAG 100 ML IV SCH ×2 (00:14→05:36)
--- NOTE | 2021-03-10 01:58 | NUR ---
Pt IV went bad, states she is having the chills, BP 98.3, HR 109, BP 167/96, RR 18, 95% RA. notified; no new orders received, states to continue with transfusion.
[2021-03-10 04:41] LABS: ALANINE AMINOTRANSFERASE 12 U/L (12-78); ALBUMIN/GLOBULIN RATIO 0.9 (1.1-1.5); ALKALINE PHOSPHATASE 55 IU/L (46-116); ANION GAP 6 (8-16); ASPARTATE AMINO TRANSFERASE 26 U/L (10-37); BILIRUBIN,TOTAL 1.9 MG/DL (0.1-1.0); BLOOD UREA NITROGEN 43 MG/DL (7-18); BUN/CREATININE RATIO 28.5 (6.6-38.0); CALCIUM 8.5 MG/DL (8.5-10.1); CHLORIDE 110 MMOL/L (99-107); CREATININE 1.51 MG/DL (0.40-0.90); GLUCOSE 90 MG/DL (70-104); MEAN CORPUSCULAR HEMOGLOBIN 32.7 PG (27.0-31.0); MEAN CORPUSCULAR HGB CONC 34.4 g/dL (33.0-36.5); MEAN CORPUSCULAR VOLUME 94.9 FL (78-98); MEAN PLATELET VOLUME 7.9 FL (7.4-10.4); PLATELET COUNT 97 X10'3 (140-440); POTASSIUM 3.9 MMOL/L (3.5-5.1); RED BLOOD COUNT 2.74 X10'6 (4.20-5.60); RED CELL DISTRIBUTION WIDTH 17.5 % (11.5-14.5); SODIUM 142 MMOL/L (135-145); TOTAL PROTEIN 6.2 G/DL (6.4-8.2); WHITE BLOOD COUNT 4.7 X10'3 (4.5-11.0); eGFR 33 ML/MIN
--- NOTE | 2021-03-10 06:15 | NUR ---
Problems reprioritized. Patient report given, questions answered & plan of care reviewed with LISA Pereyra.
--- NOTE | 2021-03-10 06:36 | NUR ---
Patient in room [place] [address]. I have received report from Viktoria ognzalez and had the opportunity to ask questions and assume patient care. Addendum: 03/10/21 at 0636 by Hafsa Valencia RN Patient in room [place] [address]. I have received report from Iza GONZALEZ and had the opportunity to ask questions and assume patient care.
[2021-03-10] MEDS: furosemide 20MG tablet PO SCH (08:00)
[2021-03-10] MEDS: carVEDilol 12.5mg tablet PO SCH ×2 (08:00→20:00)
[2021-03-10] MEDS: K and/or MAG REPLACEMENT MC SCH ×2 (08:00→20:00)
[2021-03-10] MEDS: cholecalciferol (vitamin D3) 1,000 unit (25mcg) tablet PO SCH (08:50)
[2021-03-10] MEDS: memantine 5mg tablet PO SCH ×2 (08:51→20:34)
[2021-03-10] MEDS: levoTHYROXINE 100mcg tablet PO SCH (08:51)
[2021-03-10] MEDS: ascorbic acid 500mg tablet PO SCH (08:51)
[2021-03-10] MEDS: docusate sod 100mg capsule PO SCH ×2 (08:52→20:34)
[2021-03-10] MEDS: vitamin B comp w/Vit. C tab 1 TAB TABLET PO SCH (08:52)
--- NOTE | 2021-03-10 09:14 | NUR ---
PAGER ID: [phone] MESSAGE: MILTON GONZALEZ [phone] RE: KENDY GOLDEN [id number]. PTS BP 80/42. HR 85. HELD LASIX + COREG. PLEASE ADVISE. THANK YOU
[2021-03-10 11:29] LABS: HEMATOCRIT 24.9 % (35.0-45.0); HEMOGLOBIN 8.5 g/dl (12.0-16.0); MEAN CORPUSCULAR HEMOGLOBIN 32.7 PG (27.0-31.0); MEAN CORPUSCULAR HGB CONC 34.2 g/dL (33.0-36.5); MEAN CORPUSCULAR VOLUME 95.7 FL (78-98); MEAN PLATELET VOLUME 7.8 FL (7.4-10.4); PLATELET COUNT 109 X10'3 (140-440); RED BLOOD COUNT 2.61 X10'6 (4.20-5.60); RED CELL DISTRIBUTION WIDTH 18.1 % (11.5-14.5); WHITE BLOOD COUNT 3.8 X10'3 (4.5-11.0)
--- NOTE | 2021-03-10 18:36 | NUR ---
Problems reprioritized. Patient report given, questions answered & plan of care reviewed with Iza GONZALEZ.
--- NOTE | 2021-03-10 18:37 | NUR ---
Patient in room PCU 3016. I have received report from LISA Pereyra and had the opportunity to ask questions and assume patient care.
[2021-03-10] MEDS: atorvastatin 20mg tablet PO SCH (20:34)
[2021-03-10] MEDS: pantoprazole 40 MG vial IV SCH (20:34)
[2021-03-11 02:00] VITALS: BP 139/70
[2021-03-11 06:00] VITALS: BP 121/72
--- NOTE | 2021-03-11 06:05 | NUR ---
Patient in room PCU 3016. I have received report from Iza GONZALEZ and had the opportunity to ask questions and assume patient care.
--- NOTE | 2021-03-11 06:05 | NUR ---
Problems reprioritized. Patient report given, questions answered & plan of care reviewed with LISA Pereyra.
[2021-03-11 06:44] LABS: BASOPHILS % (AUTO) 0.3 % (0-1); EOSINOPHILS # (AUTO) 0.1 X10'3 (0-0.9); EOSINOPHILS % (AUTO) 1.8 % (0-6); HEMOGLOBIN 8.8 g/dl (12.0-16.0); LYMPHOCYTES # (AUTO) 0.8 X10'3 (1.1-4.8); LYMPHOCYTES % (AUTO) 20.8 % (21-51); MEAN CORPUSCULAR HEMOGLOBIN 32.8 PG (27.0-31.0); MEAN CORPUSCULAR HGB CONC 33.8 g/dL (33.0-36.5); MEAN CORPUSCULAR VOLUME 97.1 FL (78-98); MEAN PLATELET VOLUME 7.8 FL (7.4-10.4); MONOCYTES # (AUTO) 0.5 X10'3 (0-0.9); MONOCYTES % (AUTO) 11.6 % (2-12); NEUTROPHILS # (AUTO) 2.6 X10'3 (1.8-7.7); NEUTROPHILS % (AUTO) 65.5 % (42-75); PLATELET COUNT 102 X10'3 (140-440); RED BLOOD COUNT 2.67 X10'6 (4.20-5.60); RED CELL DISTRIBUTION WIDTH 17.6 % (11.5-14.5)
[2021-03-11 07:08] LABS: ALANINE AMINOTRANSFERASE 13 U/L (12-78); ALBUMIN 2.7 G/DL (3.4-5.0); ALBUMIN/GLOBULIN RATIO 0.8 (1.1-1.5); ALKALINE PHOSPHATASE 51 IU/L (46-116); ANION GAP 6 (8-16); ASPARTATE AMINO TRANSFERASE 27 U/L (10-37); BILIRUBIN,TOTAL 1.1 MG/DL (0.1-1.0); BLOOD UREA NITROGEN 27 MG/DL (7-18); CALCIUM 8.7 MG/DL (8.5-10.1); CHLORIDE 108 MMOL/L (99-107); CREATININE 1.42 MG/DL (0.40-0.90); GLUCOSE 94 MG/DL (70-104); SODIUM 143 MMOL/L (135-145); TOTAL CARBON DIOXIDE 28.7 MMOL/L (24-32); eGFR 35 ML/MIN
[2021-03-11] MEDS: K and/or MAG REPLACEMENT MC SCH (08:00)
[2021-03-11] MEDS: carVEDilol 12.5mg tablet PO SCH (08:00)
[2021-03-11] MEDS: levoTHYROXINE 100mcg tablet PO SCH (08:34)
[2021-03-11] MEDS: pantoprazole 40 MG vial IV SCH (08:34)
[2021-03-11] MEDS: cholecalciferol (vitamin D3) 1,000 unit (25mcg) tablet PO SCH (08:35)
[2021-03-11] MEDS: vitamin B comp w/Vit. C tab 1 TAB TABLET PO SCH (08:35)
[2021-03-11] MEDS: memantine 5mg tablet PO SCH (08:35)
[2021-03-11] MEDS: furosemide 20MG tablet PO SCH (08:35)
[2021-03-11] MEDS: ascorbic acid 500mg tablet PO SCH (08:36)
[2021-03-11] MEDS: docusate sod 100mg capsule PO SCH (08:36)
[2021-03-11 11:00] VITALS: BP 99/67
--- NOTE | 2021-03-11 12:47 | NUR ---
Patient discharged at 1245. Belongings sent with patient. IV Removed, tip intact, no complications. Tele box removed. Pt educated on discharge instructions. Pt discharged home in private vehicle with .
[2021-03-11] MEDS ORDERED: PANT-47 PO (13:13)
[2021-03-11] MEDS ORDERED: CLOP75TA15 PO (13:13)
== END 2021-03-11 13:30 | disposition home health service (06) | DRG 378 ==
LOC: ER 11:09 → ED HOLD 12:54 → PCU 3S 03-09 09:40
PROVIDERS: ADMIT Family Medicine; ATTEND Family Medicine
PROC: 0DJ08ZZ Inspection of Upper Intestinal Tract, Via Natural or Artificial Opening Endoscopic (ICD-10-PCS; principal; 2021-03-09)
PROC: 30233N1 Transfusion of Nonautologous Red Blood Cells into Peripheral Vein, Percutaneous Approach (ICD-10-PCS; 2021-03-09)
DX: K92.2 Gastrointestinal hemorrhage, unspecified (principal); I13.0 Hypertensive heart and chronic kidney disease with heart failure and stage 1 through stage 4 chronic kidney disease, or unspecified chronic kidney disease; E03.9 Hypothyroidism, unspecified; E78.5 Hyperlipidemia, unspecified; I48.0 Paroxysmal atrial fibrillation; I50.9 Heart failure, unspecified; D69.6 Thrombocytopenia, unspecified; N18.9 Chronic kidney disease, unspecified; I73.9 Peripheral vascular disease, unspecified; Z79.02 Long term (current) use of antithrombotics/antiplatelets; Z79.899 Other long term (current) drug therapy; Z83.3 Family history of diabetes mellitus; Z88.8 Allergy status to other drugs, medicaments and biological substances; Z84.89 Family history of other specified conditions; Z87.891 Personal history of nicotine dependence; I69.319 Unspecified symptoms and signs involving cognitive functions following cerebral infarction; Z79.890 Hormone replacement therapy
CPT/HCPCS: 36415; 36430; 43235; 80053; 81003; 82272; 83540; 83550; 83735; 85025; 85027; 85610; 85730; 86885; 86900; 86901; 86920; 87081; 96374; 97110; 97116; 97162; 99152; 99285; A4620; C9113; G0378; J2250; J3010; J7040; P9016

== ENCOUNTER 2021-04-03 20:05 | Inpatient (IN) | payer MEDICARE, BC ==
[~2021-04-03] VITALS: Ht 165.1 cm; Wt 66.0 kg
[~2021-04-03 20:05] MED LIST changes: -CARV-50 PO; +CLOP75TA15 PO; +PANT-47 PO; -PANT40GR PO
[2021-04-03 20:30] LABS: BASOPHILS % (AUTO) 0.4 % (0-1); EOSINOPHILS % (AUTO) 0.1 % (0-6); HEMATOCRIT 29.6 % (35.0-45.0); HEMOGLOBIN 10.3 g/dl (12.0-16.0); LYMPHOCYTES # (AUTO) 0.3 X10'3 (1.1-4.8); LYMPHOCYTES % (AUTO) 4.6 % (21-51); MEAN CORPUSCULAR HEMOGLOBIN 34.9 PG (27.0-31.0); MEAN CORPUSCULAR HGB CONC 34.7 g/dL (33.0-36.5); MEAN CORPUSCULAR VOLUME 100.4 FL (78-98); MEAN PLATELET VOLUME 7.5 FL (7.4-10.4); MONOCYTES # (AUTO) 0.3 X10'3 (0-0.9); MONOCYTES % (AUTO) 3.8 % (2-12); NEUTROPHILS % (AUTO) 91.1 % (42-75); PLATELET COUNT 104 X10'3 (140-440); RED BLOOD COUNT 2.95 X10'6 (4.20-5.60); RED CELL DISTRIBUTION WIDTH 19.2 % (11.5-14.5); WHITE BLOOD COUNT 6.6 X10'3 (4.5-11.0)
[2021-04-03] MEDS ORDERED: normal saline 1000ml 1,000 ML IV ONE (20:35)
[2021-04-03 20:41] LABS: ALANINE AMINOTRANSFERASE 22 U/L (12-78); ALBUMIN/GLOBULIN RATIO 0.8 (1.1-1.5); ALKALINE PHOSPHATASE 71 IU/L (46-116); ANION GAP 11 (8-16); ASPARTATE AMINO TRANSFERASE 39 U/L (10-37); BILIRUBIN,TOTAL 1.4 MG/DL (0.1-1.0); BLOOD UREA NITROGEN 28 MG/DL (7-18); BUN/CREATININE RATIO 17.7 (6.6-38.0); CALCIUM 8.3 MG/DL (8.5-10.1); CHLORIDE 101 MMOL/L (99-107); CREATININE 1.58 MG/DL (0.40-0.90); GLUCOSE 131 MG/DL (70-104); POTASSIUM 4.6 MMOL/L (3.5-5.1); SODIUM 136 MMOL/L (135-145); TOTAL CARBON DIOXIDE 24.5 MMOL/L (24-32); eGFR 31 ML/MIN
[2021-04-03 20:48] LABS: ANISOCYTOSIS 2+; PLATELET ESTIMATE DECREASED
[2021-04-03 20:55] LABS: POLYCHROMASIA FEW
[2021-04-03 21:01] LABS: COLOR,URINE YELLOW (Yellow); UA COLLECTION TYPE NON-SPECIFIED
[2021-04-03 21:02] LABS: CLARITY,URINE CLOUDY (Clear); GLUCOSE, URINE NEGATIVE (Neg); KETONES,URINE NEGATIVE (Neg); PROTEIN,URINE 30 mg/dl (Neg)
[2021-04-03 21:03] LABS: LEUKOCYTE ESTERASE ,URINE LARGE (Neg); NITRITES, URINE NEGATIVE (Neg); OCCULT BLOOD,URINE LARGE (Neg); UROBILINOGEN,URINE 0.2 E.U/dL (0.2-1.0)
[2021-04-03 21:10] LABS: BACTERIA,URINE 3+ /HPF (Neg); WBC,URINE TNTC /HPF (0-4)
[2021-04-03 21:11] LABS: WBC CLUMPS,URINE MODERATE /HPF (NEGATIVE)
[2021-04-03] MEDS ORDERED: CefTRIAXone/D5W-Rocephin 1gm 50 ML IV ONE (21:30)
[2021-04-03] MEDS: normal saline 1000ml 1,000 ML IV SCH (23:25)
[2021-04-03] MEDS ORDERED: ondansetron/PF 4mg/2ml inj IV PRN (23:25)
[2021-04-03] MEDS ORDERED: potassium Cl 20 mEq SR tablet PO PRN ×2 (23:25)
[2021-04-03] MEDS ORDERED: magnesium 4gm in 100ml NS 100 ML IV PRN (23:25)
[2021-04-03] MEDS ORDERED: magnesium 2GM in 50ml NS 50 ML IV PRN (23:25)
[2021-04-03] MEDS ORDERED: potassium Cl 40MEQ/1/2NS 520ml 520 ML IV PRN ×2 (23:25)
[2021-04-03] MEDS ORDERED: magnesium Cl slow-release 64mg tablet PO PRN (23:25)
[2021-04-04] MEDS ORDERED: CARV-50 PO (00:21)
[2021-04-04] MEDS ORDERED: FERR-39 PO (00:36)
[2021-04-04 02:20] LABS: EOSINOPHILS % (AUTO) 0 % (0-6); HEMOGLOBIN 9.1 g/dl (12.0-16.0); MONOCYTES # (AUTO) 0.8 X10'3 (0-0.9)
[2021-04-04 02:22] LABS: BASOPHILS % (AUTO) 0.4 % (0-1); HEMATOCRIT 26.4 % (35.0-45.0); LYMPHOCYTES # (AUTO) 0.9 X10'3 (1.1-4.8); LYMPHOCYTES % (AUTO) 12.2 % (21-51); MEAN CORPUSCULAR HEMOGLOBIN 34.7 PG (27.0-31.0); MEAN CORPUSCULAR HGB CONC 34.6 g/dL (33.0-36.5); MEAN CORPUSCULAR VOLUME 100.3 FL (78-98); MEAN PLATELET VOLUME 7.5 FL (7.4-10.4); MONOCYTES % (AUTO) 10.1 % (2-12); NEUTROPHILS # (AUTO) 5.9 X10'3 (1.8-7.7); NEUTROPHILS % (AUTO) 77.3 % (42-75); PLATELET COUNT 88 X10'3 (140-440); RED BLOOD COUNT 2.63 X10'6 (4.20-5.60); RED CELL DISTRIBUTION WIDTH 18.5 % (11.5-14.5); WHITE BLOOD COUNT 7.6 X10'3 (4.5-11.0)
[2021-04-04 02:35] LABS: ALBUMIN 2.6 G/DL (3.4-5.0); ANION GAP 11 (8-16); BLOOD UREA NITROGEN 25 MG/DL (7-18); BUN/CREATININE RATIO 16.8 (6.6-38.0); CHLORIDE 104 MMOL/L (99-107); CREATININE 1.49 MG/DL (0.40-0.90); GLUCOSE 108 MG/DL (70-104); MAGNESIUM 1.8 MG/DL (1.5-2.4); POTASSIUM 3.7 MMOL/L (3.5-5.1); SODIUM 138 MMOL/L (135-145); TOTAL CARBON DIOXIDE 22.8 MMOL/L (24-32); eGFR 33 ML/MIN
[2021-04-04] MEDS ORDERED: PERFLUTREN PROTEIN-A MICROSPHR (Optison) 0.22 MG/ML 3ML VIAL IV ONE (08:00)
[2021-04-04] MEDS: K and/or MAG REPLACEMENT MC SCH ×2 (08:00→19:38)
--- NOTE | 2021-04-04 08:00 | NUR ---
Pt assisted up to BSC and back into bed. Pt HR noted to be elevated after activity with rate 130s-140's, will continue to monitor.
--- NOTE | 2021-04-04 08:15 | NUR ---
Pt HR trending down and in 120s. Pt denies SOB or CP.
[2021-04-04] MEDS ORDERED: CefTRIAXone 2gm/D5W 50ml BAG 50 ML IV SCH (08:40)
--- NOTE | 2021-04-04 08:50 | NUR ---
MD Tillman paged as HR sustaining 130's-140's afib.
[2021-04-04] MEDS: normal saline 1000ml 1,000 ML IV SCH ×2 (09:25→19:45)
--- NOTE | 2021-04-04 09:31 | NUR ---
DR MEHTA RETURNED CALL AND WAS UPDATED OF PTS HR THAT WAS PREVIOUSLY 130'S-140'S THAT HAS NOW TRENDED DOWN TO 90S-104. MD UPDATED PTS HOME MEDS HAVE NOT BEEN ADDRESSED WELL. RECEIVED VO TO CONTINUE PT HOME MEDS PER PT HOME LIST.
[2021-04-04] MEDS ORDERED: CLOP75TA34 PO (09:48)
[2021-04-04] MEDS ORDERED: PANT40TA54 PO (09:48)
[2021-04-04] MEDS ORDERED: carvedilol 6.25mg tablet PO ONE (10:07)
[2021-04-04] MEDS: furosemide 20MG tablet PO SCH (11:58)
[2021-04-04] MEDS: carvedilol 6.25mg tablet PO SCH (19:37)
[2021-04-04] MEDS: memantine 5mg tablet PO SCH ×2 (19:38→20:00)
[2021-04-04] MEDS: atorvastatin 20mg tablet PO SCH (19:38)
[2021-04-04] MEDS ORDERED: carVEDilol 3.125mg tablet PO SCH (20:00)
--- NOTE | 2021-04-04 22:37 | NUR ---
Recieved report from Odalis in the ED, waiting for pt to arrive to the unit.
[2021-04-04 23:00] VITALS: BP 143/87
--- NOTE | 2021-04-04 23:00 | NUR ---
Pt arrived safely to the unit, used the commode, Pt is on 2l NC, changed into gown and asked for warm blanket. 2 RN skin check performed. Pt had a fever, wet cloth offered, and tylenol given, Pt doing well with no complaints.
[2021-04-05] VITALS (8 sets, daily range): BP systolic 94–154; BP diastolic 47–88
[2021-04-05] MEDS: acetaminophen 325mg tablet PO PRN ×3 (02:28→20:51)
[2021-04-05 06:22] LABS: BASOPHILS % (AUTO) 0.2 % (0-1); EOSINOPHILS % (AUTO) 0.1 % (0-6); HEMATOCRIT 29.2 % (35.0-45.0); HEMOGLOBIN 9.7 g/dl (12.0-16.0); LYMPHOCYTES # (AUTO) 0.6 X10'3 (1.1-4.8); LYMPHOCYTES % (AUTO) 13.6 % (21-51); MEAN CORPUSCULAR HEMOGLOBIN 33.9 PG (27.0-31.0); MEAN CORPUSCULAR HGB CONC 33.1 g/dL (33.0-36.5); MEAN CORPUSCULAR VOLUME 102.6 FL (78-98); MEAN PLATELET VOLUME 8.3 FL (7.4-10.4); MONOCYTES # (AUTO) 0.4 X10'3 (0-0.9); NEUTROPHILS # (AUTO) 3.4 X10'3 (1.8-7.7); NEUTROPHILS % (AUTO) 77.1 % (42-75); PLATELET COUNT 88 X10'3 (140-440); RED BLOOD COUNT 2.85 X10'6 (4.20-5.60); RED CELL DISTRIBUTION WIDTH 19.4 % (11.5-14.5); WHITE BLOOD COUNT 4.4 X10'3 (4.5-11.0)
[2021-04-05 06:30] LABS: ALBUMIN 2.6 G/DL (3.4-5.0); ANION GAP 11 (8-16); BLOOD UREA NITROGEN 21 MG/DL (7-18); CALCIUM 8.5 MG/DL (8.5-10.1); CHLORIDE 106 MMOL/L (99-107); CREATININE 1.31 MG/DL (0.40-0.90); GLUCOSE 100 MG/DL (70-104); MAGNESIUM 1.7 MG/DL (1.5-2.4); POTASSIUM 3.7 MMOL/L (3.5-5.1); SODIUM 141 MMOL/L (135-145); TOTAL CARBON DIOXIDE 23.7 MMOL/L (24-32); eGFR 39 ML/MIN
--- NOTE | 2021-04-05 06:46 | NUR ---
Patient in room PCU 3027. I have received report from Jordyn GONZALEZ and had the opportunity to ask questions and assume patient care.
--- NOTE | 2021-04-05 06:47 | NUR ---
Problems reprioritized. Patient report given, questions answered & plan of care reviewed with Liz-LISA.
[2021-04-05] MEDS ORDERED: levoTHYROXINE 100mcg tablet PO SCH (08:00)
[2021-04-05] MEDS: memantine 5mg tablet PO SCH ×3 (08:00→20:16)
[2021-04-05] MEDS ORDERED: furosemide 20MG tablet PO ONE (08:00)
[2021-04-05] MEDS ORDERED: pantoprazole 40mg Tablet.DR PO SCH (08:00)
[2021-04-05] MEDS: K and/or MAG REPLACEMENT MC SCH ×2 (08:00→20:00)
--- NOTE | 2021-04-05 09:11 | NUR ---
Problems reprioritized. Patient report given, questions answered & plan of care reviewed with Gila GONZALEZ.
--- NOTE | 2021-04-05 09:12 | NUR ---
Patient in room PCU 3027. I have received report from LISA Hill and had the opportunity to ask questions and assume patient care.
[2021-04-05] MEDS: levoFLOXACIN-Levaquin 500mg/D5 100 ML IV SCH (09:45)
[2021-04-05] MEDS: cholecalciferol (vitamin D3) 1,000 unit (25mcg) tablet PO SCH (09:46)
[2021-04-05] MEDS: carvedilol 6.25mg tablet PO SCH ×2 (09:47→20:16)
[2021-04-05] MEDS: OMEGA-3/DHA/EPA/FISH OIL 1 EACH CAPSULE.DR PO SCH (09:47)
[2021-04-05] MEDS: levoTHYROXINE 100mcg tablet PO SCH (09:49)
[2021-04-05] MEDS: ascorbic acid 500mg tablet PO SCH (09:49)
[2021-04-05] MEDS: furosemide 20MG tablet PO SCH (09:50)
[2021-04-05] MEDS: clopidogrel 75mg tablet PO SCH ×2 (09:50→09:53)
[2021-04-05] MEDS: ferrous sulfate 325mg tablet PO SCH (09:51)
[2021-04-05] MEDS: pantoprazole 40mg Tablet.DR PO SCH (09:52)
[2021-04-05] MEDS: vitamin B comp w/Vit. C tab 1 TAB TABLET PO SCH (10:04)
[2021-04-05] MEDS: normal saline 1000ml 1,000 ML IV SCH ×2 (11:38→22:00)
--- NOTE | 2021-04-05 17:48 | NUR ---
[place] Medication Administration: For this medication-pass time frame, all medication were reviewed, dispensed, administered and documented per hospital policy by LISA Ingram.
--- NOTE | 2021-04-05 17:48 | NUR ---
[place] documentation: I have reviewed and agree with all interventions, assessments performed and documented by LISA Ingram.
--- NOTE | 2021-04-05 18:31 | NUR ---
Problems reprioritized. Patient report given, questions answered & plan of care reviewed with LISA Llamas. Pt sitting up in bed, eating dinner independently at change of shift.
[2021-04-05] MEDS: atorvastatin 20mg tablet PO SCH (20:16)
[2021-04-05] MEDS ORDERED: diltiazem-NS 100mg/100ml 100 ML IV SCH (22:05)
[2021-04-05] MEDS ORDERED: normal saline 250ml IV soln 250 ML IV ONE (23:20)
[2021-04-06] VITALS (10 sets, daily range): BP systolic 97–144; BP diastolic 44–74
[2021-04-06] MEDS: normal saline 1000ml 1,000 ML IV SCH ×2 (01:25→21:25)
[2021-04-06 06:19] LABS: BASOPHILS % (AUTO) 0.2 % (0-1); EOSINOPHILS % (AUTO) 0.3 % (0-6); HEMATOCRIT 27.8 % (35.0-45.0); HEMOGLOBIN 9.4 g/dl (12.0-16.0); LYMPHOCYTES # (AUTO) 0.6 X10'3 (1.1-4.8); LYMPHOCYTES % (AUTO) 19.6 % (21-51); MEAN CORPUSCULAR HEMOGLOBIN 34.2 PG (27.0-31.0); MEAN CORPUSCULAR HGB CONC 33.7 g/dL (33.0-36.5); MEAN CORPUSCULAR VOLUME 101.6 FL (78-98); MEAN PLATELET VOLUME 8.3 FL (7.4-10.4); MONOCYTES # (AUTO) 0.4 X10'3 (0-0.9); MONOCYTES % (AUTO) 12.3 % (2-12); NEUTROPHILS # (AUTO) 2.2 X10'3 (1.8-7.7); NEUTROPHILS % (AUTO) 67.6 % (42-75); PLATELET COUNT 83 X10'3 (140-440); RED BLOOD COUNT 2.73 X10'6 (4.20-5.60); RED CELL DISTRIBUTION WIDTH 18.7 % (11.5-14.5); WHITE BLOOD COUNT 3.3 X10'3 (4.5-11.0)
[2021-04-06 06:45] LABS: ALBUMIN 2.1 G/DL (3.4-5.0); ANION GAP 10 (8-16); BLOOD UREA NITROGEN 20 MG/DL (7-18); BUN/CREATININE RATIO 17.9 (6.6-38.0); CALCIUM 8.2 MG/DL (8.5-10.1); CHLORIDE 111 MMOL/L (99-107); CREATININE 1.12 MG/DL (0.40-0.90); GLUCOSE 98 MG/DL (70-104); MAGNESIUM 1.8 MG/DL (1.5-2.4); POTASSIUM 3.5 MMOL/L (3.5-5.1); SODIUM 144 MMOL/L (135-145); TOTAL CARBON DIOXIDE 23.1 MMOL/L (24-32); eGFR 46 ML/MIN
[2021-04-06] MEDS: vitamin B comp w/Vit. C tab 1 TAB TABLET PO SCH (09:51)
[2021-04-06] MEDS: cholecalciferol (vitamin D3) 1,000 unit (25mcg) tablet PO SCH (09:51)
[2021-04-06] MEDS: pantoprazole 40mg Tablet.DR PO SCH (09:52)
[2021-04-06] MEDS: ferrous sulfate 325mg tablet PO SCH (09:52)
[2021-04-06] MEDS: ascorbic acid 500mg tablet PO SCH (09:52)
[2021-04-06] MEDS: levoTHYROXINE 100mcg tablet PO SCH (09:52)
[2021-04-06] MEDS: memantine 5mg tablet PO SCH ×2 (09:52→19:22)
[2021-04-06] MEDS: carvedilol 6.25mg tablet PO SCH ×2 (09:52→19:22)
[2021-04-06] MEDS: levoFLOXACIN-Levaquin 500mg/D5 100 ML IV SCH (09:53)
[2021-04-06] MEDS: furosemide 20MG tablet PO SCH (10:00)
[2021-04-06] MEDS: OMEGA-3/DHA/EPA/FISH OIL 1 EACH CAPSULE.DR PO SCH (10:01)
--- NOTE | 2021-04-06 18:36 | NUR ---
Problems reprioritized. Patient report given, questions answered & plan of care reviewed with Farhad GONZALEZ.
[2021-04-06] MEDS: atorvastatin 20mg tablet PO SCH (19:22)
[2021-04-06] MEDS: K and/or MAG REPLACEMENT MC SCH (20:00)
[2021-04-07 06:00] VITALS: BP 134/69
[2021-04-07 07:25] LABS: BASOPHILS % (AUTO) 0.5 % (0-1); EOSINOPHILS % (AUTO) 0.7 % (0-6); HEMOGLOBIN 9.5 g/dl (12.0-16.0); LYMPHOCYTES # (AUTO) 0.7 X10'3 (1.1-4.8); LYMPHOCYTES % (AUTO) 23.2 % (21-51); MEAN CORPUSCULAR HEMOGLOBIN 34.4 PG (27.0-31.0); MEAN CORPUSCULAR VOLUME 101.1 FL (78-98); MONOCYTES # (AUTO) 0.5 X10'3 (0-0.9); MONOCYTES % (AUTO) 15.6 % (2-12); NEUTROPHILS # (AUTO) 1.7 X10'3 (1.8-7.7); PLATELET COUNT 93 X10'3 (140-440); RED BLOOD COUNT 2.77 X10'6 (4.20-5.60); RED CELL DISTRIBUTION WIDTH 18.3 % (11.5-14.5); WHITE BLOOD COUNT 2.9 X10'3 (4.5-11.0)
[2021-04-07 07:32] LABS: ALBUMIN 2.1 G/DL (3.4-5.0); ANION GAP 9 (8-16); BLOOD UREA NITROGEN 12 MG/DL (7-18); BUN/CREATININE RATIO 11.4 (6.6-38.0); CHLORIDE 107 MMOL/L (99-107); CREATININE 1.05 MG/DL (0.40-0.90); GLUCOSE 83 MG/DL (70-104); MAGNESIUM 1.5 MG/DL (1.5-2.4); SODIUM 142 MMOL/L (135-145); TOTAL CARBON DIOXIDE 25.6 MMOL/L (24-32); eGFR 50 ML/MIN
[2021-04-07] MEDS: K and/or MAG REPLACEMENT MC SCH ×3 (08:00→20:00)
[2021-04-07] MEDS: clopidogrel 75mg tablet PO SCH ×3 (08:00→10:08)
[2021-04-07 08:32] LABS: ANISOCYTOSIS 2+; PLATELET ESTIMATE DECREASED; TOTAL CELLS COUNTED 100
[2021-04-07] MEDS: ferrous sulfate 325mg tablet PO SCH (09:08)
[2021-04-07] MEDS: ascorbic acid 500mg tablet PO SCH (09:08)
[2021-04-07] MEDS: OMEGA-3/DHA/EPA/FISH OIL 1 EACH CAPSULE.DR PO SCH (09:08)
[2021-04-07] MEDS: vitamin B comp w/Vit. C tab 1 TAB TABLET PO SCH (09:08)
[2021-04-07] MEDS: furosemide 20MG tablet PO SCH (09:08)
[2021-04-07] MEDS: memantine 5mg tablet PO SCH ×2 (09:09→21:44)
[2021-04-07] MEDS: cholecalciferol (vitamin D3) 1,000 unit (25mcg) tablet PO SCH (09:09)
[2021-04-07] MEDS: carvedilol 6.25mg tablet PO SCH ×2 (09:09→21:44)
[2021-04-07] MEDS: diltiazem 30mg tablet PO SCH ×3 (09:11→21:44)
[2021-04-07] MEDS: levoTHYROXINE 100mcg tablet PO SCH (09:15)
[2021-04-07] MEDS: pantoprazole 40mg Tablet.DR PO SCH (09:15)
[2021-04-07] MEDS: normal saline 1000ml 1,000 ML IV SCH ×2 (09:15→17:25)
[2021-04-07] MEDS ORDERED: magnesium 4gm in 100ml NS 100 ML IV PRN (09:40)
[2021-04-07] MEDS ORDERED: potassium Cl 40MEQ/1/2NS 520ml 520 ML IV PRN (09:40)
[2021-04-07] MEDS ORDERED: potassium Cl 20 mEq SR tablet PO PRN ×2 (09:40→10:10)
[2021-04-07] MEDS ORDERED: magnesium Cl slow-release 64mg tablet PO PRN (09:40)
[2021-04-07] MEDS: levoFLOXACIN-Levaquin 500mg/D5 100 ML IV SCH (09:48)
[2021-04-07 17:06] VITALS: BP 122/60
--- NOTE | 2021-04-07 18:31 | NUR ---
Problems reprioritized. Patient report given, questions answered & plan of care reviewed with Yola GONZALEZ.
[2021-04-07 19:00] VITALS: BP 133/94
[2021-04-07] MEDS: atorvastatin 20mg tablet PO SCH (21:44)
[2021-04-07 23:00] VITALS: BP 139/91
[2021-04-08] MEDS: diltiazem 30mg tablet PO SCH (02:47)
[2021-04-08 06:00] VITALS: BP 120/62
[2021-04-08 06:39] LABS: BASOPHILS % (AUTO) 0.5 % (0-1); EOSINOPHILS % (AUTO) 1.4 % (0-6); HEMATOCRIT 26.9 % (35.0-45.0); HEMOGLOBIN 9.3 g/dl (12.0-16.0); LYMPHOCYTES # (AUTO) 0.8 X10'3 (1.1-4.8); LYMPHOCYTES % (AUTO) 24.6 % (21-51); MEAN CORPUSCULAR HEMOGLOBIN 34.1 PG (27.0-31.0); MEAN CORPUSCULAR HGB CONC 34.6 g/dL (33.0-36.5); MEAN CORPUSCULAR VOLUME 98.5 FL (78-98); MEAN PLATELET VOLUME 7.9 FL (7.4-10.4); MONOCYTES # (AUTO) 0.4 X10'3 (0-0.9); MONOCYTES % (AUTO) 13.1 % (2-12); NEUTROPHILS % (AUTO) 60.4 % (42-75); PLATELET COUNT 97 X10'3 (140-440); RED BLOOD COUNT 2.73 X10'6 (4.20-5.60); RED CELL DISTRIBUTION WIDTH 18.2 % (11.5-14.5); WHITE BLOOD COUNT 3.3 X10'3 (4.5-11.0)
[2021-04-08 06:41] LABS: ALBUMIN 2.1 G/DL (3.4-5.0); ANION GAP 2 (8-16); BLOOD UREA NITROGEN 11 MG/DL (7-18); BUN/CREATININE RATIO 10.2 (6.6-38.0); CALCIUM 8.6 MG/DL (8.5-10.1); CHLORIDE 108 MMOL/L (99-107); CREATININE 1.08 MG/DL (0.40-0.90); GLUCOSE 86 MG/DL (70-104); MAGNESIUM 1.4 MG/DL (1.5-2.4); POTASSIUM 3.4 MMOL/L (3.5-5.1); SODIUM 138 MMOL/L (135-145); eGFR 48 ML/MIN
[2021-04-08] MEDS: K and/or MAG REPLACEMENT MC SCH ×2 (08:00)
[2021-04-08] MEDS ORDERED: diltiazem CD 120mg capsule (once-daily) PO SCH (08:00)
[2021-04-08] MEDS: ferrous sulfate 325mg tablet PO SCH (08:46)
[2021-04-08] MEDS: pantoprazole 40mg Tablet.DR PO SCH (08:46)
[2021-04-08] MEDS: levoFLOXACIN-Levaquin 500mg/D5 100 ML IV SCH (08:46)
[2021-04-08] MEDS: cholecalciferol (vitamin D3) 1,000 unit (25mcg) tablet PO SCH (08:47)
[2021-04-08] MEDS: ascorbic acid 500mg tablet PO SCH (08:47)
[2021-04-08] MEDS: OMEGA-3/DHA/EPA/FISH OIL 1 EACH CAPSULE.DR PO SCH (08:47)
[2021-04-08] MEDS: furosemide 20MG tablet PO SCH (08:47)
[2021-04-08] MEDS: vitamin B comp w/Vit. C tab 1 TAB TABLET PO SCH (08:48)
[2021-04-08] MEDS: levoTHYROXINE 100mcg tablet PO SCH (08:48)
[2021-04-08] MEDS: memantine 5mg tablet PO SCH (08:48)
[2021-04-08] MEDS: carvedilol 6.25mg tablet PO SCH (08:48)
[2021-04-08] MEDS ORDERED: CARCD120C PO (10:29)
[2021-04-08] MEDS ORDERED: LEVO500T89 PO (10:29)
[2021-04-08] MEDS ORDERED: POTA20TA19 PO (10:29)
--- NOTE | 2021-04-08 11:47 | NUR ---
1100- talked to daughter Ashley about discharge meds and need to call to make f/u apts with primary and refrigeration engineer in next 2 and 1 weeks respectively. All belongings accounted for- gown. IV removed and cath tip intact. deny sob, or pain. transfered to w/c with 1 person standby. vss bp 108/78, hr 82, sat 95%RA. Daughter picked pt up in car out front- unable to come in d/t recent covid infection. transfered from w/c to car with 1 person standby safely.
== END 2021-04-08 11:59 | disposition home or self-care (01) | DRG 871 ==
LOC: ER 20:06 → ED HOLD 23:28 → PCU 3S 04-04 22:50
PROVIDERS: ADMIT Internal Medicine; ATTEND Family Medicine
DX: A41.9 Sepsis, unspecified organism (principal); I21.A1 Myocardial infarction type 2; N39.0 Urinary tract infection, site not specified; Z16.24 Resistance to multiple antibiotics; I50.32 Chronic diastolic (congestive) heart failure; I48.20 Chronic atrial fibrillation, unspecified; E03.9 Hypothyroidism, unspecified; B96.20 Unspecified Escherichia coli [E. coli] as the cause of diseases classified elsewhere; D53.9 Nutritional anemia, unspecified; E78.5 Hyperlipidemia, unspecified; F03.90 Unspecified dementia, unspecified severity, without behavioral disturbance, psychotic disturbance, mood disturbance, and anxiety; I11.0 Hypertensive heart disease with heart failure; I34.0 Nonrheumatic mitral (valve) insufficiency; E87.6 Hypokalemia; Z20.822 Contact with and (suspected) exposure to COVID-19; I73.9 Peripheral vascular disease, unspecified; K21.9 Gastro-esophageal reflux disease without esophagitis; Z79.890 Hormone replacement therapy; Z79.899 Other long term (current) drug therapy; Z83.3 Family history of diabetes mellitus; Z86.73 Personal history of transient ischemic attack (TIA), and cerebral infarction without residual deficits; Z87.440 Personal history of urinary (tract) infections; Z87.891 Personal history of nicotine dependence; Z88.8 Allergy status to other drugs, medicaments and biological substances; Z79.02 Long term (current) use of antithrombotics/antiplatelets
CPT/HCPCS: 36415; 71045; 80048; 80053; 81001; 83735; 83880; 84484; 85007; 85008; 85025; 87077; 87081; 87088; 87186; 87635; 93005; 93306; 96361; 96365; 97110; 97161; 97530; 99285; G0378; J0696; J1956; J3490; J7030; J7050

== ENCOUNTER 2022-05-05 13:39 | Emergency (ER) | payer MEDICARE, BC ==
[~2022-05-05] VITALS: Ht 167.6 cm; Wt 56.8 kg
[~2022-05-05 13:39] MED LIST changes: +CARCD120C PO; +CARV-50 PO; -CLOP75TA15 PO; +FERR-39 PO; +LEVO-65 PO; +OMEG-5 PO; -OMEG1CAP13 PO; -PANT-47 PO; +PANT40TA54 PO; +POTA-207 PO
[2022-05-05 14:57] LABS: BASOPHILS % (AUTO) 0.6 % (0-1); EOSINOPHILS # (AUTO) 0.1 X10'3 (0-0.9); EOSINOPHILS % (AUTO) 1.5 % (0-6); HEMATOCRIT 32.7 % (35.0-45.0); HEMOGLOBIN 11.3 g/dl (12.0-16.0); LYMPHOCYTES # (AUTO) 1.1 X10'3 (1.1-4.8); LYMPHOCYTES % (AUTO) 32.6 % (21-51); MEAN CORPUSCULAR HEMOGLOBIN 34.1 PG (27.0-31.0); MEAN CORPUSCULAR HGB CONC 34.4 g/dL (33.0-36.5); MEAN CORPUSCULAR VOLUME 99.1 FL (78-98); MEAN PLATELET VOLUME 7.8 FL (7.4-10.4); MONOCYTES # (AUTO) 0.3 X10'3 (0-0.9); MONOCYTES % (AUTO) 8.9 % (2-12); NEUTROPHILS # (AUTO) 1.9 X10'3 (1.8-7.7); NEUTROPHILS % (AUTO) 56.4 % (42-75); PLATELET COUNT 98 X10'3 (140-440); RED CELL DISTRIBUTION WIDTH 14.5 % (11.5-14.5); WHITE BLOOD COUNT 3.4 X10'3 (4.5-11.0)
[2022-05-05 15:07] LABS: ALANINE AMINOTRANSFERASE 17 U/L (12-78); ALBUMIN 3.5 G/DL (3.4-5.0); ALBUMIN/GLOBULIN RATIO 0.9 (1.1-1.5); ALKALINE PHOSPHATASE 63 IU/L (46-116); ANION GAP 6 (8-16); ASPARTATE AMINO TRANSFERASE 35 U/L (10-37); BILIRUBIN,TOTAL 0.8 MG/DL (0.1-1.0); BLOOD UREA NITROGEN 30 MG/DL (7-18); BUN/CREATININE RATIO 18.4 (6.6-38.0); CALCIUM 9.2 MG/DL (8.5-10.1); CHLORIDE 101 MMOL/L (99-107); CREATININE 1.63 MG/DL (0.40-0.90); GLUCOSE 99 MG/DL (70-104); SODIUM 138 MMOL/L (135-145); TOTAL PROTEIN 7.3 G/DL (6.4-8.2); eGFR 30 ML/MIN
[2022-05-05 15:14] LABS: MAGNESIUM 2.2 MG/DL (1.5-2.4)
[2022-05-05] MEDS ORDERED: HYDROcodone/acetaminophen 5mg/325mg tablet PO ONE (17:55)
[2022-05-05] MEDS ORDERED: HYDR-3965 PO (18:01)
[2022-05-05 18:15] VITALS: BP 150/82
== END 2022-05-05 18:16 | disposition home or self-care (01) ==
LOC: ER 13:40
DX: R07.89 Other chest pain (principal); I11.0 Hypertensive heart disease with heart failure; I50.9 Heart failure, unspecified; E03.9 Hypothyroidism, unspecified; Z88.5 Allergy status to narcotic agent
CPT/HCPCS: 36415; 71045; 80053; 83735; 83880; 84484; 85025; 93005; 93306; 99285

== ENCOUNTER 2024-01-23 18:05 | Emergency (ER) | payer MEDICARE, BC ==
[~2024-01-23] VITALS: Ht 160 cm; Wt 54.7 kg
[~2024-01-23 18:05] MED LIST changes: -ASCO-10 PO; +ASCO500C12 PO; -ATOR40TA PO; +ATOR40TA72 PO; -CARCD120C PO; +CETI10TA19 PO; -CHOL10006 PO; +CHOL200074 PO; +DILT120C19 PO; -FURO-150 PO; +FURO40TA4 PO; +GABA-530 PO; -LEVO-65 PO; +LEVO100T PO; +MEMA10TA22 PO; -MEMA5TAB PO; -PANT40TA54 PO; +POTA-188 PO; -POTA-207 PO; -SYN0.1T PO; -TURM500C4 PO
[2024-01-23 19:08] LABS: HEMOGLOBIN 13.3 g/dl (12.0-16.0); LYMPHOCYTES # (AUTO) 1.9 X10'3 (1.1-4.8); RED BLOOD COUNT 4.13 X10'6 (4.20-5.60); WHITE BLOOD COUNT 4.1 X10'3 (4.5-11.0)
[2024-01-23 19:13] LABS: BASOPHILS % (AUTO) 0.4 % (0-1); EOSINOPHILS % (AUTO) 1.1 % (0-6); LYMPHOCYTES % (AUTO) 46.1 % (21-51); MEAN CORPUSCULAR HEMOGLOBIN 32.3 PG (27.0-31.0); MEAN CORPUSCULAR HGB CONC 34.1 g/dL (33.0-36.5); MEAN CORPUSCULAR VOLUME 94.5 FL (78-98); MEAN PLATELET VOLUME 8.9 FL (7.4-10.4); MONOCYTES # (AUTO) 0.5 X10'3 (0-0.9); MONOCYTES % (AUTO) 12.1 % (2-12); NEUTROPHILS # (AUTO) 1.6 X10'3 (1.8-7.7); NEUTROPHILS % (AUTO) 40.3 % (42-75); PLATELET COUNT 105 X10'3 (140-440); RED CELL DISTRIBUTION WIDTH 14.7 % (11.5-14.5)
[2024-01-23 19:20] LABS: ALBUMIN 3.3 G/DL (3.4-5.0); ANION GAP 12 (8-16); BLOOD UREA NITROGEN 40 MG/DL (7-18); BUN/CREATININE RATIO 26.7 (10.0-20.0); C-REACTIVE PROTEIN 6.29 MG/DL (0.0-0.5); CALCIUM 8.9 MG/DL (8.5-10.1); CHLORIDE 99 MMOL/L (99-107); GLUCOSE 78 MG/DL (70-104); POTASSIUM 3.5 MMOL/L (3.5-5.1); SODIUM 137 MMOL/L (135-145); TOTAL CARBON DIOXIDE 25.8 MMOL/L (24-32); eCRCL 22 ML/MIN; eGFR 33 ML/MIN
[2024-01-23 19:38] LABS: LARGE PLATELETS FEW; PLATELET ESTIMATE DECREASED
[2024-01-23 21:34] VITALS: TEMP 98.5
[2024-01-23] MEDS ORDERED: dexamethasone 4mg tablet PO ONE (21:35)
[2024-01-23] MEDS: DEXAMETHASONE 6 MG TABLET PO ONE (21:57)
[2024-01-23 21:59] VITALS: BP 145/81; PULSE 76; RESP 21; O2SAT 94
== END 2024-01-23 22:50 | disposition home or self-care (01) ==
LOC: ER 18:05
DX: U07.1 COVID-19 (principal); R05.9 Cough, unspecified; F03.90 Unspecified dementia, unspecified severity, without behavioral disturbance, psychotic disturbance, mood disturbance, and anxiety; I48.91 Unspecified atrial fibrillation; I11.0 Hypertensive heart disease with heart failure; I50.9 Heart failure, unspecified; D64.9 Anemia, unspecified; E03.9 Hypothyroidism, unspecified; Z85.89 Personal history of malignant neoplasm of other organs and systems; Z98.890 Other specified postprocedural states; Z72.89 Other problems related to lifestyle; Z88.8 Allergy status to other drugs, medicaments and biological substances; Z79.899 Other long term (current) drug therapy; Z86.73 Personal history of transient ischemic attack (TIA), and cerebral infarction without residual deficits
CPT/HCPCS: 36415; 71045; 80048; 83605; 84145; 85008; 85025; 86140; 87040; 87811; 99285; C1758; J8540